=== PATIENT | female | born 1965 | race Caucasian/White ===

== ENCOUNTER 2020-10-18 13:02 | Emergency (ER) | payer MEDICAID, OTHER ==
[~2020-10-18] VITALS: Ht 170.2 cm; Wt 90.7 kg
[2020-10-18 13:06] VITALS: BP 119/89
--- NOTE | 2020-10-18 13:21 | NUR ---
PATIENT AMBULATED TO BED 4.
--- NOTE | 2020-10-18 13:35 | NUR ---
Dr. Hernandez is evaluating the patient at bedside.
[2020-10-18 14:05] LABS: BASOPHILS # (AUTO) 0.1 K/uL (0.00-0.22); BASOPHILS % (AUTO) 0.9 % (0.0-2.0); EOSINOPHILS # (AUTO) 0.1 K/uL (0-0.4); EOSINOPHILS % (AUTO) 0.5 % (0.0-4.0); HEMATOCRIT 42.6 % (36-48); LYMPHOCYTES # (AUTO) 2.3 K/uL (2.5-16.5); LYMPHOCYTES % (AUTO) 20.8 % (20.5-51.1); MEAN CORPUSCULAR HEMOGLOBIN 30 pg (27-31); MEAN CORPUSCULAR HGB CONC 33 g/dL (33-37); MEAN CORPUSCULAR VOLUME 91.5 fL (80-94); MONOCYTES # (AUTO) 0.4 K/uL (0.8-1.0); MONOCYTES % (AUTO) 3.4 % (1.7-9.3); NEUTROPHILS # (AUTO) 8.2 K/uL (1.8-7.7); NEUTROPHILS % (AUTO) 74.4 % (42.2-75.2); PLATELET COUNT (AUTO) 271 K/uL (140-450); RED BLOOD CELL COUNT(AUTO) 4.65 MIL/uL (4.20-5.40); RED CELL DISTRIBUTION WIDTH 13.4 % (11.6-13.7); WHITE BLOOD COUNT (AUTO) 11.1 K/uL (4.8-10.8)
--- NOTE | 2020-10-18 14:07 | NUR ---
CONSENT FOR CT WITH CONTRAST SIGNED
--- NOTE | 2020-10-18 14:18 | NUR ---
55YO F BIB SELF C/O BACK PAIN AND WORSENING LEG NUMBNESS X 2 HRS. PER PT, SHE FELL ON A LADDER 6 STEPS HIGH AND FELT 10/10 BACK PAIN ACCOMPANIED BY DIFFICULTY BREATHING. 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 HAS NOT BEEN SEEN BY SPECIALIST D/T NO INSURANCE. IN ER, PT WAS AMBULATORY. VSS. SUBJECTIVE NUMBNESS TO BOTH LEGS, STRENGTH 4/5 BILATERAL LOWER EXTREMITIES. PT LAYING IN BED COMFORTABLY WITH 2 SIDERAILS UP. ERMD MADE AWARE. PMH: ANXIETY NKA
[2020-10-18 14:22] VITALS: BP 119/89
[2020-10-18 14:23] LABS: APPEARANCE,URINE CLEAR (CLEAR); BILIRUBIN,URINE NEGATIVE (NEGATIVE); BLOOD, URINE TRACE-I (NEGATIVE); COLOR,URINE YELLOW (YELLOW); LEUKOCYTE ESTERASE ,URINE NEGATIVE (NEGATIVE); NITRITE, URINE NEGATIVE (NEGATIVE); UGLUCOSE NEGATIVE (NEGATIVE)
[2020-10-18 14:30] LABS: RBC,URINE 0-5 /HPF (0-5); WBC,URINE 0-5 /HPF (0-5)
[2020-10-18 14:34] LABS: BARBITURATE, URINE NEGATIVE ng/ml (NEG <=200); BENZODIAZEPINE, URINE NEGATIVE ng/mL (NEG <=200); CANNABINOID, URINE NEGATIVE ng/mL (NEG <=50); COCAINE, URINE NEGATIVE ng/mL (NEG <=300); OPIATE, URINE NEGATIVE ng/mL (NEG <=2000); PHENCYCLIDINE SCREEN,URINE NEGATIVE ng/mL (NEG <=25)
[2020-10-18 14:36] LABS: ALBUMIN 3.4 g/dL (3.4-5.0); ANION GAP 15.6 (8-16); ASPARTATE AMINOTRANSFERASE 14 U/L (15-37); CARBON DIOXIDE 26.4 mmol/L (21-32); CHLORIDE 104 mmol/L (98-107); CREATININE 0.9 mg/dL (0.6-1.3); GFR ARICAN-AMERICAN 84 mL/min (>90); GLUCOSE 149 mg/dL (74-106); SODIUM SERUM 142 mmol/L (136-145); TOTAL BILIRUBIN 0.2 mg/dL (0.0-1.0); UREA NITROGEN, BLOOD 14 mg/dL (7-18)
--- NOTE | 2020-10-18 14:45 | NUR ---
[facility]
--- NOTE | 2020-10-18 15:06 | NUR ---
PT BACK FROM CT
--- NOTE | 2020-10-18 16:08 | NUR ---
manager building, Tiffanie, is evaluating the patient at bedside.
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
== END 2020-10-18 16:45 | disposition home or self-care (01) ==
LOC: MED 13:02
DX: M54.10 Radiculopathy, site unspecified (principal); M46.96 Unspecified inflammatory spondylopathy, lumbar region
CPT/HCPCS: 36415; 71260; 74177; 80053; 80305; 81001; 81025; 85025; 99285; G0482; Q9967